=== PATIENT | male | born 1960 | race Caucasian/White ===

== ENCOUNTER 2019-08-22 20:07 | Outpatient (REF) | payer OTHER, SELFPAY ==
[2019-08-22 20:12] LABS: HCT 45.8 % (40.0-50.0); HGB 14.9 g/dL (13.5-17.5); Mean Corp. HGB Concentration 32.5 g/dL (32.0-36.0); Mean Corpuscular Volume 101.3 fL (80-95); Mean Platelet Volume 11.3 fL (8.0-11.0); Platelet Count 255 x1000/uL (130-400); RBC 4.52 m/cumm (4.50-6.00); RBC Distribution Width 14.9 % (11.8-14.1)
[2019-08-22 20:39] LABS: ALT 22 U/L (16-63); AST 15 U/L (15-37); Albumin 3.6 g/dL (3.4-5.0); Alkaline Phosphatase 97 U/L (46-116); Anion Gap 7.3 mmol/L (3-11); BUN 21 mg/dL (7-18); Bilirubin, Total 0.8 mg/dL (0.2-1.0); CO2 30.7 mmol/L (21.0-32.0); CREATININE 1.23 mg/dL (0.70-1.30); Calcium 9.7 mg/dL (8.5-10.1); Chloride 106 mmol/L (98-107); Estimated GFR 59.82 (mL/min/1.73m2); Glucose 147 mg/dL (70-100); Potassium 4.5 mmol/L (3.5-5.1); Sodium 144 mmol/L (136-145); TSH (W/Ref FT4) 0.68 uIU/mL (0.36-3.74); Total Protein 6.9 g/dL (6.4-8.2)
== END 2019-08-22 20:27 ==
LOC: LBN 20:07
PROVIDERS: PCP Family Medicine; Visit Provider Nurse Practitioner
DX: I48.91 Unspecified atrial fibrillation (principal)
CPT/HCPCS: 80053; 85027; 84443

== ENCOUNTER 2019-10-02 00:44 | Outpatient (CLI) | payer OTHER, SELFPAY ==
--- NOTE | 2019-10-02 13:40 | DI.US_ITS ---
APPROVED REPORT EXAM: Comprehensive 2D, Doppler, and color-flow Echocardiogram Patient Location: Out-Patient Horticultural Specialty Grower: Angelina Slater RUST ([place]) Rhythm: Atrial Fibrillation, tachycardia Indications: recently worsened atrial fibrillation, fatigue. i48.91 Conclusion Left Ventricle : The left ventricle is normal size. Borderling concentric left ventricular hypertroph y. There is normal LV segmental wall motion. There is septal flattening suggestive of RV voluem overl oad. LVEF is 50-55%. Diastolic function is indeterminate but there is evidence of elevated filling p ressures. Right Ventricle : Right ventricle is mildly dilated. The right ventricle is mildly reduced in functio n. Right ventricle is borderline hypertrophied. Atria : Left atrium is mildly dilated. Right atrium is moderately dilated. Aortic Valve : Aortic valve is trileaflet. There is no aortic valvular stenosis. No aortic regurgitat ion is present. Mitral Valve : The mitral valve is normal in structure. No evidence of mitral valve stenosis. Trivial to mild mitral regurgitation. Tricuspid Valve : Tricuspid valve leaflets are mildly thickened but open well. Moderate tricuspid reg urgitation. Pulmonic Valve : Pulmonic valve is not well visualized. Great Vessels : The IVC is dilated. The IVC collapses >50% with inspiration. RVSP is estimated to be between 28-36 mmHg. Compared to the echocardiogram dated 03/24/2015 there is no significant change. Wall motion Left Ventricle The left ventricle is normal size. Left ventricular systolic function is low normal. Borderling matheus ntric left ventricular hypertrophy. There is normal LV segmental wall motion. There is septal flatten ing suggestive of RV voluem overload. Diastolic function is indeterminate but there is evidence of el evated filling pressures. LVEF is 50-55%. Right Ventricle Right ventricle is mildly dilated. The right ventricle is mildly reduced in function. Right ventricle is borderline hypertrophied. Atria Left atrium is mildly dilated. Right atrium is moderately dilated. Aortic Valve Aortic valve is trileaflet. There is no aortic valvular stenosis. No aortic regurgitation is present. Mitral Valve The mitral valve is normal in structure. No evidence of mitral valve stenosis. Trivial to mild mitral regurgitation. Tricuspid Valve Tricuspid valve leaflets are mildly thickened but open well. Moderate tricuspid regurgitation. Pulmonic Valve Pulmonic valve is not well visualized. Trace pulmonic regurgitation. Great Vessels The aortic root is normal in size. The ascending aorta is normal in size. The IVC is dilated. The IVC collapses >50% with inspiration. RVSP is estimated to be between 28-36 mmHg. Pericardium There is no pericardial effusion. 2D Dimensions IVSd 1.12 cm M: 0.6-1.2 LV EDV A2C 76.70 mL PWd 1.16 cm M: 0.6 - 1.2 LV EDV A4C 63.00 mL LVDd 4.65 cm M: 4.2 - 5.9 LA Volume Index A2C 29.02 mL/m2 LVDs 3.18 cm M: 2.5 - 4.0 LA Volume Index A4C 38.34 mL/m2 Aortic Root 3.34 cm M: 3.1 - 3.7 LA Volume Index Biplane 34.92 mL/m2 RA Area A4C 27.29 cm2 LA Area A4C 24.90 cm2 LVOT 2.04 cm (M/F) 1.5-2.5 LA Area A2C 20.70 cm2 Ascending Aorta 3.47 cm M: 2.6 - 3.4 EF AP4 54.44 % LVEF (Teich) 59.40 % EF AP2 49.41 % LVEF (Shields's) 54.60 % M: 52 - 72 EF BP 54.60 % LV Volume 54.17 mL M: 62 - 150 LV Volume Index 23.65 mL/m2 M: 34 - 74 FS 31.48 % LV Diastology E Decel Time 170.00 (160-240 msec) MED E' 0.13 (>0.07 m/s) LV E/e MED 6.65 (<14) LAT E' 0.15 (>0.1 m/s) LV E/e LAT 6.04 (<14) Aortic Valve LVOT Area 3.26 cm2 LVOT Peak Garrett. 1.06 m/s LVOT Mean Garrett. 0.78 m/s LVOT Peak Gr. 4.53 mmHg DELISA Vmax Index 1.27 cm2/m2 LVOT Mean Gr. 2.76 mmHg LVOT VTI 0.17 m DELISA Mean Garrett. Index 1.25 cm2/m2 AoV Peak Garrett. 1.19 (0.5-1.3 m/s) AoV Mean Garrett. 0.89 m/s AO Peak GR. 5.71 mmHg AO Mean GR. 3.47 (<5 mmHg) AO VTI 0.19 (0.18-0.25 m) DELISA (VTI) 3.06 (2.5-4.5 cm2) DELISA (VTI) Index 1.33 cm/m2 Mitral Valve MV E Max Garrett. 0.88 (0.4-1.3 m/s) MV Decel. Time 170.09 (160-240 msec) MV PHT 49.33 msec MVA PHT 4.46 cm2 Pulmonary Valve PV Peak Velocity 0.72 (0.5-1.5 m/s) Tricuspid Valve TR P. Velocity 2.63 m/s TV Regurg Vmax 2.63 m/s RVSP 35.59 mmHg TR P. Gradient 27.59 mmHg
== END 2019-10-02 01:04 ==
PROVIDERS: PCP Family Medicine; Visit Provider Family Medicine
DX: I48.91 Unspecified atrial fibrillation (principal); R53.83 Other fatigue; I51.7 Cardiomegaly; I08.3 Combined rheumatic disorders of mitral, aortic and tricuspid valves
CPT/HCPCS: 93306

== ENCOUNTER 2019-10-11 08:45 | Outpatient (CLI) | payer OTHER, SELFPAY | END 2019-10-11 09:05 | PROVIDERS: PCP Family Medicine; Visit Provider Internal Medicine Cardiovascular Disease | DX: I48.91 Unspecified atrial fibrillation (principal) | CPT/HCPCS: 93005; 93010 ==

== ENCOUNTER 2019-10-16 07:17 | Day surgery (SDC) | payer OTHER, SELFPAY ==
[2019-10-16] VITALS (9 sets, daily range): BP systolic 94–115; BP diastolic 55–80; PULSE 60–76; RESP 13–21; TEMP 36.2–36.8; O2SAT 87–95
[2019-10-16] MEDS: Normal Saline 1,000 ML 30 ML IV (08:24)
--- NOTE | 2019-10-16 09:13 | W.CARDVER ---
Date of service: 10/16/19 Time of Service: 09:13 Cardioversion Patient was brought in today surgery for synchronous cardioversion. ?The patient was confirmed to be in atrial fibrillation ?Consent was obtained ?Patient was sedated with the help of anesthesia using propofol ?Patient was cardioverted with 200 J shock x1 with successful return to normal sinus rhythm ?Normal sinus rhythm was confirmed on EKG
--- NOTE | 2019-10-16 10:27 | W.PM.DSUDISC ---
Discharge Plan Disposition Patient Disposition: HOME Condition: Good Discharge Details Reason For Visit: ATRIAL FIBRILLATION Attending Provider: Tate Johnson Primary Care Provider: Domingo Mackenzie [place] Meds and New Rx's Prescriptions: Continued Eliquis 5 mg tablet 5 mg PO BID Qty: 180 RF: 3 epinephrine [EpiPen 2-Ananda] 0.3 mg/0.3 mL auto-injector 0.3 mg IM PRN Qty: 1 RF: 12 furosemide 20 mg tablet 20 mg PO DAILY Qty: 90 RF: 3 glipizide 5 mg tablet 10 mg PO DAILY 90 Days Qty: 90 RF: 3 metformin 500 mg tablet 1,000 mg PO BID Qty: 360 RF: 3 metoprolol succinate 200 mg tablet extended release 24 hr 200 mg PO DAILY Qty: 90 RF: 3 metoprolol succinate 100 mg tablet extended release 24 hr 100 mg PO QHS Qty: 30 RF: 0 atorvastatin 20 mg tablet 20 mg PO DAILY RF: 0 Discontinued diltiazem HCl [Cardizem CD] 120 mg capsule,extended release 24hr 120 mg PO DAILY Qty: 90 RF: 3 No Action (DME) OneTouch Ultra Test Strip 1 ea Miscellaneous BID Qty: 200 RF: 3 (DME) lancets [OneTouch Delica Lancets] 33 gauge misc 1 ea Miscellaneous TID Qty: 300 RF: 0 Discharge Orders Discharge Orders: Discharge Order (Routine); Ordered 10/16/19 Ordered By: Tate Johnson DS: Diagnosis Discharge Diagnosis (1) Rapid atrial fibrillation: Status: Acute
== END 2019-10-16 11:10 | disposition home or self-care (01) ==
PROVIDERS: PCP Family Medicine; Visit Provider Internal Medicine Cardiovascular Disease
PROC: 5A2204Z Restoration of Cardiac Rhythm, Single (ICD-10-PCS; CPT 92960; principal; 2019-10-16 09:00)
DX: I48.11 Longstanding persistent atrial fibrillation (principal); I10 Essential (primary) hypertension; K21.9 Gastro-esophageal reflux disease without esophagitis; G47.33 Obstructive sleep apnea (adult) (pediatric)
CPT/HCPCS: 92960; 93005; 93010; J2250

== ENCOUNTER 2019-10-26 08:56 | Outpatient (CLI) | payer OTHER, SELFPAY | END 2019-10-26 09:16 | PROVIDERS: PCP Family Medicine; Visit Provider Internal Medicine Cardiovascular Disease | DX: I48.19 Other persistent atrial fibrillation (principal) | CPT/HCPCS: 93005; 93010 ==

== ENCOUNTER 2020-01-21 08:25 | Outpatient (CLI) | payer OTHER, SELFPAY | END 2020-01-21 08:45 | PROVIDERS: PCP Family Medicine; Visit Provider Internal Medicine Cardiovascular Disease | DX: I48.91 Unspecified atrial fibrillation (principal) | CPT/HCPCS: 93005; 93010 ==

== ENCOUNTER 2020-01-28 12:57 | Day surgery (SDC) | payer OTHER, SELFPAY ==
[2020-01-28] VITALS (8 sets, daily range): BP systolic 101–118; BP diastolic 50–87; PULSE 70–108; RESP 4–24; TEMP 35.7–36.7; O2SAT 88–95
[2020-01-28] MEDS: Albuterol/Ipratropium 3 ML UPD VIAL UPD (13:54)
[2020-01-28] MEDS: Normal Saline 1,000 ML 30 ML IV (14:35)
[2020-01-28] MEDS: Albuterol 2.5 MG/3 ML INH SOLN VIAL (15:28)
--- NOTE | 2020-01-28 15:32 | W.CARDVER ---
Date of service: 01/28/20 Time of Service: 15:32 Cardioversion The patient arrived in atrial fibrillation. His H&P was reviewed. The risks and benefits of the procedure were discussed and consent was obtained. Patient was sedated with the help of anesthesia. The patient was cardioverted successfully with 200 J x 1 Normal sinus rhythm was confirmed with a 12-lead EKG. Patient was brought to PACU for recovery.
== END 2020-01-28 17:06 | disposition home or self-care (01) ==
PROVIDERS: PCP Family Medicine; Visit Provider Internal Medicine Cardiovascular Disease
PROC: 5A2204Z Restoration of Cardiac Rhythm, Single (ICD-10-PCS; CPT 92960; principal; 2020-01-28 14:00)
DX: I48.19 Other persistent atrial fibrillation (principal)
CPT/HCPCS: 92960; 93005; 93010; 94640; J2001; J7613; J7620

== ENCOUNTER 2020-03-11 08:15 | Outpatient (CLI) | payer OTHER, SELFPAY ==
[2020-03-11 13:59] LABS: Anion Gap 6.2 mmol/L (3-11); BUN 18 mg/dL (7-18); CO2 33.8 mmol/L (21.0-32.0); CREATININE 1.32 mg/dL (0.70-1.30); Calcium 10.2 mg/dL (8.5-10.1); Chloride 104 mmol/L (98-107); Estimated GFR 55.14 (mL/min/1.73m2); Glucose 138 mg/dL (74-106); Potassium 4.3 mmol/L (3.5-5.1); Sodium 144 mmol/L (136-145)
== END 2020-03-11 08:35 ==
PROVIDERS: PCP Family Medicine; Visit Provider Family Medicine
DX: I10 Essential (primary) hypertension (principal)
CPT/HCPCS: 36415; 80048

== ENCOUNTER 2020-10-23 02:32 | Outpatient (CLI) | payer OTHER, SELFPAY ==
[2020-10-24 21:42] LABS: COVID-19 RT-PCR Result NEGATIVE (Negative)
== END 2020-10-23 02:52 ==
PROVIDERS: PCP Family Medicine; Visit Provider Surgery
DX: Z11.59 Encounter for screening for other viral diseases (principal); Z01.818 Encounter for other preprocedural examination
CPT/HCPCS: U0003

== ENCOUNTER 2020-10-27 10:50 | Day surgery (SDC) | payer OTHER, SELFPAY ==
--- NOTE | 2020-10-14 09:50 | PDOC.ANES ---
Date of service: 10/14/20 Time of Service: 09:51 Anesthesia Note Report Anesthesia Note: Anesthesia consult requested on Mr. Miller by Dr. Issas office due to history of flash pulmonary edema, and a right paralyzed hemidiaphragm. Patient is scheduled for a colonoscopy with Dr. Issa on October 27 of this year. The patient has a significant cardiac history with right sided volume overload, mild to moderate regurg in multiple valves, with a preserved EF. 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 I attempted to contact the patient regarding his current health, however, did not answer his phone. Current documents show improvement from his ECHO in 2015, and a stable pulmonary status to his previous anesthetic records from 2019. I believe we can proceed with all due caution. I recommend keeping his fluid intake low for preop and the case.
--- NOTE | 2020-10-14 10:14 | PDOC.ANES ---
Date of service: 10/14/20 Time of Service: 10:14 Anesthesia Note Report Anesthesia Note: Patient called us back, and reports he has been very stable since his ablation this past February at [facility]. The patient did have an episode of pulmonary edema intraop and was held an extra day for diuresis and monitoring. His last note with Dr. Johnson was promising and this reconfirms that the patient can proceed.
--- NOTE | 2020-10-27 07:11 | W.COLOREPORT ---
Date of service: 10/27/20 Time of Service: 12:30 Colonoscopy Report Date of procedure: 10/27/20 Pre-op diagnosis general: Colon Cancer Screening Post-op diagnosis procedure note: same Procedure: Colonoscopy Surgeon: Amna Issa Anesthesia proc note operative: other (General/ASA 3/genoveva Bond, DWIGHT) Estimated blood loss (mL): 0 Pathology: none sent Complications: None Disposition: same day Indications: The patient is here for Colonoscopy pre-op. His last screening was in 2008 and was unremarkable. He has no family history of colon cancer. He has not had any bowel habit changes. -Discussed colonoscopy bowel prep as well as the procedure. Discussed possible complications of the procedure to include bleeding, pain, perforation, missed small lesion/polyp, sore throat, aspiration and adverse reaction to the medications. Questions were answered to patient?s satisfaction. No guarantees were implied or given. Prep: Miralax/Dulcolax Procedure Start Time: 12:30 Procedure End Time: 13:03 Retraction Time: 13 minutes Findings: Normal colon Procedure Description: After informed consent was obtained the patient was taken to the procedure room and placed in a left decubitous position. Monitors were applied and a time out was done. The patients name, date of , procedure, allergies to medications and metal in their body was reviewed. The patient was then sedated. Once sedated and comfortable a rectal exam was done. External exam was normal. Internal exam revealed a normal sphincter tone and no palpable masses. The prostate felt smooth. The scope was then introduced and retro-flexed. No internal hemorrhoids were identified. The scope was then advanced to the cecum without difficulty. The ileocecal valve and appendiceal orifice were identified. The prep was adequate. The scope was then slowly retracted over 13 minutes back into the rectum. There were no polyps and no diverticula. The scope was removed and the patient was woken up and taken back to Same day surgery in stable condition. The patient tolerated the procedure well and there were no immediate complications. Follow up: The patient should follow up in 10 years unless they develop changes in bowel habits or other new gastrointestinal complaints.
--- NOTE | 2020-10-27 07:11 | W.PM.DSUDISC ---
Discharge Plan Disposition Patient Disposition: HOME Condition: Good Discharge Details Reason For Visit: colonoscopy Attending Provider: Amna Issa Primary Care Provider: Domingo Mackenzie Home Meds and New Rx's Prescriptions: Continued flu vacc [id number] 6mos up(PF) 60 mcg (15 mcg x 4)/0.5 mL syringe 0.5 ml IM ONCE Qty: 0.5 RF: 0 Eliquis 5 mg tablet 5 mg PO BID Qty: 180 RF: 3 furosemide 20 mg tablet 20 mg PO DAILY Qty: 90 RF: 3 glipizide 10 mg tablet 10 mg PO BID Qty: 180 RF: 3 metoprolol succinate 100 mg tablet extended release 24 hr 100 mg PO BID Qty: 180 RF: 3 atorvastatin 20 mg tablet 20 mg PO DAILY Qty: 90 RF: 3 epinephrine [EpiPen 2-Ananda] 0.3 mg/0.3 mL auto-injector 0.3 mg IM PRN Qty: 1 RF: 12 metformin 500 mg tablet 1,000 mg PO BID Qty: 360 RF: 3 (DME) blood sugar diagnostic Strip 1 ea Miscellaneous BID Qty: 200 RF: 3 (DME) lancets [OneTouch Delica Lancets] 33 gauge misc 1 ea Miscellaneous TID Qty: 300 RF: 3 Discontinued polyethylene glycol 3350 17 gram/dose powder 238 g PO ONCE Qty: 238 RF: 0 bisacodyl [Dulcolax (bisacodyl)] 5 mg tablet,delayed release (DR/EC) 5 mg PO ONCE Qty: 4 RF: 0 atorvastatin 20 mg tablet 20 mg PO DAILY RF: 0 Discharge Instructions Additional Instructions: Findings: Normal large bowel Follow up: 10 years Medication: restart medications tonight Please call if you develop: fevers >101.5 Nausea or Vomiting Abdominal pain that is not transient DAY SURGERY UNIT POST ENDOSCOPY INSTRUCTIONS 1. Because there will be medication in your system for the next 24 hours, you may feel a little sleepy. Your coordination will be affected. Therefore: a. Do not drive or operate dangerous equipment for 24 hours. b. Do not drink alcohol beverages for 24 hours (not even beer). c. Plan to go home and rest for the day. 2. Generally there are no restrictions on your activity after a day or so has gone by, but you may feel a bit fatigued for a few days. 3 After you arrive home you may have a light meal and return to a normal diet as you can tolerate it without feeling sick to your stomach. 4. After surgery, you may feel pain or discomfort. This should be only transient, but if it persists please contact your doctor. 5. If there are any questions regarding the findings of your procedure, please feel free to contact your doctor. 6. If you are unable to contact your doctor with a problem, contact the hospital at [phone]. 7. Continue all your regular medications unless directed otherwise. I understand the above instructions and have no questions. Signature of Patient or Responsible Adult Escort Date/Time Name of Responsible Adult Escort Signature of Nurse Date/Time Activity:: Activity as Tolerated Diet:: As Tolerated Discharge Orders Discharge Orders: Discharge Order (Routine); Ordered 10/27/20 Ordered By: Amna Issa
[2020-10-27 11:24] VITALS: BP 125/81; PULSE 74; RESP 16; TEMP 36.3; O2SAT 94
[2020-10-27] MEDS: Lactated Ringers 1,000 ML 80 ML IV (11:50)
[2020-10-27 13:28] VITALS: BP 99/64; PULSE 69; RESP 18; TEMP 36.6; O2SAT 92
== END 2020-10-27 14:00 | disposition home or self-care (01) ==
LOC: SUR 10:51
PROVIDERS: PCP Family Medicine; Visit Provider Surgery
PROC: 0DJD8ZZ Inspection of Lower Intestinal Tract, Via Natural or Artificial Opening Endoscopic (ICD-10-PCS; CPT 45378; principal; 2020-10-27 12:15)
DX: Z12.11 Encounter for screening for malignant neoplasm of colon (principal); E11.9 Type 2 diabetes mellitus without complications; Z79.84 Long term (current) use of oral hypoglycemic drugs
CPT/HCPCS: 45378; J2001

== ENCOUNTER 2021-01-13 10:40 | Outpatient (CLI) | payer OTHER, SELFPAY ==
--- NOTE | 2021-01-13 10:30 | RT.EKG_ITS ---
APPROVED REPORT Exam: Resting ECG Patient Location: O HR:77 bpm ECG Measurements Heart Rate 77 AXIS AL 156 P -27 QRSd 102 QRS 59 QT 374 T -7 QTc 424 Conclusion Sinus rhythm...normal P axis, V-rate 50- 99 Borderline T abnormalities, inferior leads...T flat/neg, II III aVF
== END 2021-01-13 10:41 | disposition home or self-care (01) ==
LOC: DI.CARD 10:41
PROVIDERS: PCP Family Medicine; Visit Provider Internal Medicine Cardiovascular Disease
DX: I48.0 Paroxysmal atrial fibrillation (principal)
CPT/HCPCS: 93010

== ENCOUNTER 2022-01-07 02:34 | Outpatient (CLI) | payer OTHER, SELFPAY ==
[2022-01-07 08:30] LABS: BUN 18 mg/dL (7-18); Calcium 10.3 mg/dL (8.5-10.1); Calculated LDL 77 mg/dL (<100); Chloride 105 mmol/L (98-107); Cholesterol 152 mg/dL (<200); Glucose 70 mg/dL (74-106); HDL Cholesterol 57 mg/dL (40-60); Potassium 4.6 mmol/L (3.5-5.1); Sodium 144 mmol/L (136-145); Triglyceride 94 mg/dL (<150)
[2022-01-08 10:44] LABS: Hepatitis C Ab w Rflx HCV PCR Negative (Negative)
[2022-01-08 10:46] LABS: HIV-1/2 Ag & Ab Screen Negative (Negative)
== END 2022-01-07 02:35 | disposition home or self-care (01) ==
LOC: LBO 02:35
PROVIDERS: PCP Family Medicine; Visit Provider Family Medicine
DX: Z11.59 Encounter for screening for other viral diseases (principal); I10 Essential (primary) hypertension; E78.5 Hyperlipidemia, unspecified; Z11.4 Encounter for screening for human immunodeficiency virus [HIV]
CPT/HCPCS: 36415; 80048; 80061; 86803; 87389

== ENCOUNTER 2024-01-10 08:30 | Outpatient (CLI) | payer MEDICARE, OTHER, SELFPAY ==
--- NOTE | 2024-01-10 08:30 | RT.EKG_ITS ---
APPROVED REPORT Exam: Resting ECG Reason for Exam: paf Patient Location: O HR:60 bpm ECG Measurements Heart Rate 60 AXIS MN 185 P -27 QRSd 100 QRS 77 QT 403 T -22 QTc 403 Conclusion Sinus rhythm...normal P axis, V-rate 50- 99 Consider left atrial enlargement...wide or notched P waves Nonspecific T abnormalities, inferior leads...T <-0.10mV, II III aVF Baseline wander in lead(s) V1,V2
== END 2024-01-10 08:31 | disposition home or self-care (01) ==
LOC: DI.CARD 08:31
PROVIDERS: PCP Family Medicine; Visit Provider Internal Medicine Cardiovascular Disease
DX: I48.0 Paroxysmal atrial fibrillation (principal)
CPT/HCPCS: 93010

== ENCOUNTER → 2024-01-10 09:15 | Outpatient (BNVA) | payer MEDICARE, OTHER, SELFPAY | PROVIDERS: PCP Family Medicine; Visit Provider Internal Medicine Cardiovascular Disease | DX: I48.0 Paroxysmal atrial fibrillation (principal) | CPT/HCPCS: 93005; 99213 ==

== ENCOUNTER → 2025-01-08 09:38 | Outpatient (BNVA) | payer MEDICARE, OTHER, SELFPAY | PROVIDERS: PCP Family Medicine; Visit Provider Internal Medicine Cardiovascular Disease | DX: I48.0 Paroxysmal atrial fibrillation (principal) | CPT/HCPCS: 99213 ==

== ENCOUNTER → 2025-10-15 09:44 | Outpatient (CLI) | payer MEDICARE, OTHER, SELFPAY ==
--- NOTE | 2025-10-15 11:06 | DI.RAD_ITS ---
Exam(s) XR CHEST 2V PA LATERAL EXAM: XR CHEST 2V PA LATERAL CLINICAL HISTORY: J98.4 Other disorders lung,Know restrictive disease, worsening dyspnea TECHNIQUE: 2D digital imaging was performed of the chest. Two images were obtained. PA and lateral views were obtained. COMPARISON: CR CHEST 2 VIEWS PA,LAT from 03/24/2015 FINDINGS: There is again seen elevation of the right hemidiaphragm. MEDIASTINUM: Normal. HEART: Normal. PULMONARY VASCULATURE: There is mild pulmonary venous congestion. LUNGS: There are no focal consolidating infiltrates. PLEURAL SPACE: No pleural effusion or pneumothorax. BONE:Within normal limits for the patient's age. OTHER FINDINGS:Normal. IMPRESSION: 1. Mild pulmonary venous congestion. 2. There is no focal consolidating infiltrate present. DATA REPOSITORY: RADIATION DOSE DELIVERED:
== END ==
LOC: DI 09:49
PROVIDERS: PCP Family Medicine; Visit Provider Family Medicine
DX: J98.4 Other disorders of lung (principal)
CPT/HCPCS: 71046

== ENCOUNTER 2025-10-21 04:15 | Outpatient (CLI) | payer MEDICARE, OTHER, SELFPAY ==
[2025-10-21 12:49] LABS: MCH 35.4 pg (27.0-33.0); MCHC 33.5 % (32.0-36.0); MPV 10.7 fL (8.0-11.0); RBC 5.67 10^6/uL (4.36-5.78); RDW 14.6 % (11.8-14.1); RDW-SD 57.6 fL; WBC 9.99 10^3/uL (4.4-10.8)
[2025-10-21 13:38] LABS: MCV 106 fL (80-95)
[2025-10-21 13:39] LABS: Platelet Count 206 10^3/uL (130-400)
[2025-10-21 13:41] LABS: HGB 20.1 g/dL (13.5-17.5)
[2025-10-21 13:46] LABS: HCT 60.0 % (40.0-50.0)
== END 2025-10-21 04:16 | disposition home or self-care (01) ==
LOC: LBO 04:15
PROVIDERS: PCP Family Medicine; Referring Provider Family Medicine; Visit Provider Family Medicine
DX: R06.09 Other forms of dyspnea (principal)
CPT/HCPCS: 36415; 85027

== ENCOUNTER 2025-10-22 01:05 | Outpatient (CLI) | payer MEDICARE, OTHER, SELFPAY ==
[2025-10-22] MEDS: Levalbuterol HFA 15 GM INH 4 PUFF IH (11:20)
[2025-10-22] MEDS: Inhaler, Assist Device 1 EACH MC (11:20)
--- NOTE | 2025-10-22 13:08 | W.PFT ---
Date of service: 10/22/25 Time of Service: 10:00 Pulmonary Function Test Result Indications: Restrictive lung disease Impression 1. Good patient effort was noted. ATS standards for reproducibility were met. 2. Spirometry was normal 3. Following the administration of a bronchodilator there was not a significant response 4. TLC is reduced at 64% predicted, consistent with moderate restrictive lung disease 5. DLCO was 62%, consistent with a moderate defect in alveolar gas exchange Conclusion: - Restrictive lung disease with reduced diffusion capacity. Underlying interstitial lung disease should be considered. Could also be related to diaphragm dysfunction and/or pulmonary hypertension
== END 2025-10-22 01:06 | disposition home or self-care (01) ==
LOC: RT 01:05
PROVIDERS: PCP Family Medicine; Visit Provider Family Medicine
DX: J98.4 Other disorders of lung (principal)
CPT/HCPCS: 93306; 94060; 94726; 94729

== ENCOUNTER → 2025-10-22 11:33 | Outpatient (CLI) | payer MEDICARE, OTHER, SELFPAY ==
--- NOTE | 2025-10-22 10:15 | DI.US_ITS ---
APPROVED REPORT EXAM: Comprehensive 2D, Doppler, and color-flow Echocardiogram Patient Location: Out-Patient Cat Dog Or Other Pet Groomer: Denise Berger RDCS (AE) Indications: Dyspnea, Pulmonary vascular congestion, MIKE Other Information Study Quality: Adequate. Technically limited study due to body habitus. Conclusion Mild asymmetric septal hypertrophy. Normal left ventricular chamber size. Ejection fraction is 55%. No segmental wall motion abnormalities are appreciated Enlarged right ventricle with preserved systolic function. Right atrium is moderately enlarged Normal left atrial size There are no structural valvular abnormalities Mild tricuspid regurgitation. Severe pulmonary hypertension with an estimated right ventricular systolic pressure of 92 mmHg Mildly dilated ascending aorta 3.59 cm Wall motion Left Ventricle The left ventricle is normal size. The overall left ventricular systolic function appears normal. Beat to beat variation. Asymmetric septal thickening is noted. Regional wall motion is not well visualized but grossly normal. There is no ventricular septal defect visualized. LVEF is 55%. Right Ventricle Right ventricle is moderate to severely dilated. Right ventricular systolic function is grossly normal. Atria The left atrium size is normal. Right atrium is moderately dilated. The interatrial septum is intact with no evidence for an atrial septal defect. Aortic Valve The aortic valve is normal in structure. Aortic valve is trileaflet. There is no aortic valvular stenosis. No aortic regurgitation is present. Mitral Valve The mitral valve is normal in structure. No evidence of mitral valve stenosis. Trace mitral regurgitation. Tricuspid Valve The tricuspid valve is normal in structure. There is no tricuspid valve stenosis. Mild tricuspid regurgitation. The RVSP is 92.2 mmHg. Pulmonic Valve The pulmonary valve is normal in structure. There is no pulmonic valvular stenosis. There is no pulmonic valvular regurgitation. Great Vessels The aortic root is normal in size. The ascending aorta is mildly dilated. Aortic arch is not well visualized. IVC is normal in size and collapses >50% with inspiration. Pericardium There is no pericardial effusion. 2D Dimensions IVSD d PLAX 1.31 cm M: 0.6-1.2 Ao Root d 3.35 cm M: 3.1 - 3.7 LVPW d PLAX 1.20 cm M: 0.6 - 1.2 Ao Asc Diam d 3.59 cm M: 2.6 - 3.4 LVID d PLAX 4.40 cm M: 4.2 - 5.8 LVDs 3.14 cm M: 2.5 - 4.0 LV EF Teichholz 55.3 % FS 28.61 % LV EDV (Teich) 87.7 mL LV ESV (Teich) 39.2 mL M-Mode TAPSE 2.70 cm (M/F) >1.7 LA Volume LA Length A4C 5.6 cm LA Length A2C 5.6 cm LA Area A4C s 17.14 cm2 LA Area A2C s 19.73 cm2 LA Vol A4C A-L 44.30 mL LA Vol A2C A-L 58.81 mL LA Vol Biplane A-L 51.1 mL LA Vol/BSA A4C A-L LA Vol/BSA A2C A-L LA Vol/BSA BP A-L 23.5 mL/m2 LA Vol A4C MOD 41.4 mL LA Vol A2C MOD 54.9 mL LA Vol BP MOD 47.6 mL RA Volume RA Area A4C 18.2 cm2 RA ESV A4C (A-L) 64.6mL RA Vol/BSA A4C A-L RA Length A4C 4.3 cm RA ESV A4C (MOD) 62.0mL LV Diastology MV E' medial 0.077 (>0.07 m/s) MV E Vmax 0.61 (0.4-1.3 m/s) MV E/E' MED 7.92 (<14) MV A Vmax 0.80 (0.4-1.3 m/s) MV E' lateral 0.118 (>0.1 m/s) E/A Ratio 0.8 MV E/E' LAT 5.19 (<14) MV E' Average 0.098 m/s MV E/E'(average) 6.27 Aortic Valve AoV Vmax 1.38 m/s LVOT Vmax 1.39 m/s AoV Peak Grad 7.6 mmHg LVOT Peak Grad 7.7 mmHg AoV Area (Vmax) 3.47 cm2 LVOT VTI 0.257 m AoV VTI 0.239 m LVOT Mean Grad 3.9 mmHg AoV Mean Garrett. 0.91 m/s LVOT SV 88.81 mL AoV Mean Grad 3.8 mmHg LVOT Diam s 2.05 cm AoV Area (VTI) 3.72 cm2 AV Regurg Peak Gr. 7.61 mmHg Velocity Ratio 1.01 Mitral Valve MV DT 263 (160-240 msec) MV Vmax TIPS 0.74 m/s MV Mean Grad 0.8 (<2mmHg) MV VTI 0.188 m Pulmonary Valve PV Vmax 0.74 (0.5-1.5 m/s) RVOT Vmax 0.64 m/s PV Peak Grad 2.2 mmHg RVOT Peak Gr. 1.6 mmHg PV Mean Garrett 0.58 m/s RVOT VTI 0.100 m PV Mean Grad 1.4 mmHg RVOT Mean Gr. 0.7 mmHg Tricuspid Valve RA Pressure 3.00 mmHg TR Vmax 4.72 m/s TV S' 0.17 m/s TR Peak Grad 89.2 mmHg RVSP (TR) 92.2 mmHg
== END ==
LOC: DI 11:35
PROVIDERS: PCP Family Medicine; Visit Provider Family Medicine
DX: R06.09 Other forms of dyspnea (principal); I42.2 Other hypertrophic cardiomyopathy; I36.0 Nonrheumatic tricuspid (valve) stenosis
CPT/HCPCS: 93306

== ENCOUNTER 2025-11-07 08:04 | Outpatient (CLI) | payer MEDICARE, OTHER, SELFPAY ==
[2025-11-07 15:54] LABS: RBC 5.44 10^6/uL (4.36-5.78); WBC 8.56 10^3/uL (4.4-10.8)
[2025-11-07 15:55] LABS: MCH 34.9 pg (27.0-33.0); MCHC 32.8 % (32.0-36.0); MCV 107 fL (80-95); RDW 14.1 % (11.8-14.1); RDW-SD 56.7 fL
[2025-11-07 15:56] LABS: Immature Grans % 0.4 %; MPV 11.3 fL (8.0-11.0); Platelet Count 217 10^3/uL (130-400)
[2025-11-07 16:02] LABS: HCT 58.0 % (40.0-50.0); HGB 19.0 g/dL (13.5-17.5)
[2025-11-07 16:38] LABS: Anisocytosis 1+; Macrocytosis 1+
== END 2025-11-07 08:05 | disposition home or self-care (01) ==
LOC: LBO 08:04
PROVIDERS: PCP Family Medicine; Visit Provider Family Medicine
DX: D75.1 Secondary polycythemia (principal)
CPT/HCPCS: 36415; 82668; 85025

== ENCOUNTER → 2025-11-15 00:12 | Outpatient (CLI) | payer MEDICARE, OTHER, SELFPAY ==
--- NOTE | 2025-11-15 06:13 | DI.CT_ITS ---
Exam(s) CT CHEST PE CTA EXAM: CT CHEST PE CTA CLINICAL HISTORY: Dypsnea,pulmonary edema,polycythemia,j81.1. TECHNIQUE: Imaging Protocol: CT angiography of the chest was performed using pulmonary embolus protocol. Multi planar reconstructions were performed. CONTRAST MATERIAL: Intravenous: Omnipaque 350 Contrast volume: 100 cc COMPARISON: CT CHEST HIGH RESOLUTION from 06/23/2009 CR CHEST 2 VIEWS PA,LAT from 03/24/2015 FINDINGS: CHEST: PULMONARY ARTERIES: There are no intraluminal filling defects to suggest acute pulmonary emboli. LUNGS: There are no infiltrates nor evidence of pulmonary infarction.. No ominous pulmonary nodules. There are no pleural effusions. Right hemidiaphragm is elevated. MEDIASTINUM: There is no hilar nor mediastinal adenopathy. CARDIAC: Heart size is upper normal. There is no pericardial effusion.Caliber of the thoracic aorta is within normal limits. There is no significant shift of the interventricular septum. PARTIALLY VISUALIZED UPPERMOST ABDOMEN: There is no significant reflux of intravenous contrast into the intrahepatic IVC. There is no ascites. No adrenal findings. Spleen size normal. OSSEOUS: No significant osseous lesions.No fractures.. IMPRESSION: 1. No evidence of acute pulmonary emboli. No evidence of pulmonary infarction.No pleural effusions. 2. The right hemidiaphragm is elevated. However, this is unchanged from chest x-ray of March 2015.. This was also evident on prior chest CT scan of 2008. RADIATION DOSE DELIVERED: 221.12mGy.cm Total DLP DATA REPOSITORY: All CT scans at this facility are submitted to the National Radiology Data Registry (NRDR) Dose Index Registry (DIR) with the [employer] ([employer]). RADIATION OPTIMIZATION: All CT scans at this facility use at least one of these dose optimization techniques: automated exposure control; mA and/or kV adjustment per patient size (includes targeted exams where dose is matched to clinical indication); or iterative reconstruction.
[2025-11-15] MEDS: Normal Saline - Diluent 50 ML VIAL IJ (08:31)
[2025-11-15] MEDS: Normal Saline Flush 10 ML SYR IVP (08:31)
[2025-11-15] MEDS: Omnipaque 350 MG/ML 500 ML BTL-Imaging package IJ (08:31)
== END ==
LOC: DI 00:12
PROVIDERS: PCP Family Medicine; Visit Provider Family Medicine
DX: J81.1 Chronic pulmonary edema (principal); R06.00 Dyspnea, unspecified
CPT/HCPCS: 71275; 82565